=== PATIENT | male | born 1990 | race Caucasian/White ===

== ENCOUNTER 2018-01-06 00:15 | Emergency (ER) | END 2018-01-06 03:17 | disposition home or self-care (01) ==

== ENCOUNTER 2018-10-25 19:27 | Emergency (ER) | payer BC, OTHER ==
[~2018-10-25] VITALS: Ht 175.3 cm; Wt 72.0 kg
[~2018-10-25 19:27] MED LIST: HYDR-3980 PO; NEOM28.33 TP
[2018-10-25 19:30] VITALS: BP 167/70; PULSE 128; RESP 20; Ht 175.3 cm; Wt 72.0 kg
== END 2018-10-25 20:44 | disposition left against medical advice (07) ==
LOC: FTE 19:27
DX: Z53.21 Procedure and treatment not carried out due to patient leaving prior to being seen by health care provider (principal)